=== PATIENT | male | born 1990 | race Caucasian/White ===

== ENCOUNTER 2023-05-04 20:47 | Emergency (ER) | payer OTHER ==
[2023-05-04 20:52] VITALS: O2SAT 100
[2023-05-04 21:06] LABS: RAPID STREP SCREEN Negative (Negative)
--- NOTE | 2023-05-04 21:07 | ED Physician Documentation ---
PD HPI HEENT - Stated complaint Stated Complaint: SORE THROAT - Chief complaint Chief Complaint: Heent - History obtained from History obtained from: Patient - Additional information Additional information: HPI from patient. Patient complains of sore throat times last few days. This been associate with odynophagia as well as chills. He had these chills last night but did not check his temperature. Patient says a few weeks ago he was evaluated in clinic for similar symptoms and was diagnosed with strep throat; patient says he had a strep swab performed and it was positive for strep. For this, he was prescribed a course of penicillin. He says the symptoms did resolve until they recurred a few days ago. Review of Systems Constitutional: reports: Chills Throat: reports: Sore throat Respiratory: denies: Dyspnea, Cough PD PAST MEDICAL HISTORY - Past Medical History Past Medical History: No Cardiovascular: None Respiratory: None Neuro: None Endocrine/Autoimmune: None GI: None : None HEENT: None Psych: None Musculoskeletal: None Derm: None - Past Surgical History Past Surgical History: No - Allergies Allergies/Adverse Reactions: Allergies Allergy/AdvReac Type Severity Reaction Status Date / Time No Known Drug Allergies Allergy Verified 05/04/23 20:50 - Social History Does the pt smoke?: No Smoking Status: Never smoker Does the pt drink ETOH?: No Does the pt have substance abuse?: No - Immunizations Immunizations are current?: Yes PD ED PE NORMAL - Vitals Vital signs reviewed: Yes - General General: Alert and oriented X 3, No acute distress, Well developed/nourished - HEENT HEENT: Moist mucous membranes PD ED PE EXPANDED - HEENT HEENT: Other (tonsils appear hypertrophic but symmetrical and without erythema. There is spotty exudate on both tonsils. airway is widely patent) Results - Vitals Vitals: Vital Signs - 24 hr 05/04/23 20:50 Temperature 36.5 C Heart Rate 83 Respiratory 16 Rate Blood Pressure 140/80 H O2 Saturation 100 Oxygen O2 Source Room air - Labs Labs: Laboratory Tests 05/04/23 20:54 Group A Strep Rapid Negative PD Medical Decision Making - ED course Complexity details: reviewed results, considered differential, d/w patient ED course: Presents with sore throat and exudate on exam on both tonsils. However, his rapid strep is negative. He is given 10 mg p.o. Decadron, one-time dose of steroid for his symptoms. Return precautions discussed. Departure - Departure Disposition: 01 Home, Self Care Clinical Impression: Sore throat Condition: Good Instructions: ED Pharyngitis Viral Report Pending Comments: You were given a 1-time dose of a steroid (dexamethasone) in the emergency department. This often reduces the swelling and discomfort associated with pharyngitis. The rapid strep test was negative. As we discussed, this only tests for one type of strep (although it is the most common form of strep associated with strep throat). A culture will now be performed on the throat swab; this is significantly more accurate than the rapid strep, and will also test for a few other types of strep that the rapid strep does not detect. If the culture comes up positive for one of these organisms, you will get a phone call at home and an antibiotic can be electronically submitted to your pharmacy of choice at that time. You will not receive a phone call if the culture is negative. Until and unless the culture returns positive for strep, the most likely cause at this point is a viral infection. It is safe to assume that you are contagious at this time. Forms: PCP List
[2023-05-04] MEDS ORDERED: CHERRY SYRUP 10 ML UDC PO ONE (21:21)
[2023-05-04] MEDS ORDERED: DEXAMETHASONE 10 MG/ML VIAL PO STA (21:21)
[2023-05-04 22:15] VITALS: BP 130/80
== END 2023-05-04 22:00 | disposition home or self-care (01) ==
LOC: ED 20:47
DX: J02.9 Acute pharyngitis, unspecified (principal)
CPT/HCPCS: 87070; 87430; 99283; A9270